=== PATIENT | male | born 1980 | race Caucasian/White ===

== ENCOUNTER 2016-08-08 21:13 | Emergency (ER) | payer MEDICARE, MEDICAID ==
[2016-08-08] MEDS ORDERED: Ondansetron INJ* 2 MG/ML VIAL ONE (21:43)
[2016-08-08] MEDS ORDERED: Ondansetron INJ* 2 MG/ML VIAL IV ONE (21:47)
[2016-08-08] MEDS ORDERED: NS 0.9% 1000 ML* 1,000 ML IV ONE (22:15)
[2016-08-08] MEDS ORDERED: HYDROmorphone INJ* 1 MG/ML CARPUJECT SYRINGE IV ONE ×2 (22:15→22:50)
[2016-08-08] MEDS ORDERED: Pantoprazole IV* 40 MG IV ONE (22:20)
[2016-08-08 22:43] LABS: Hematocrit 53 % (42-52); Hemoglobin 18.3 g/dl (14.0-18.0); Mean Corpuscular HGB Conc 34 g/dl (31-36); Mean Corpuscular Hemoglobin 29 pg (27-31); Mean Corpuscular Volume 83 fL (80-94); Mean Platelet Volume 10 um3 (7.4-10.4); Red Blood Count 6.42 10^6/ul (4.0-5.4); Red Cell Distribution Width 14 % (10.5-15); White Blood Count 25.7 10^3/ul (3.5-10.8)
[2016-08-08 22:45] LABS: Add Diff/Slide Review? Slide Review Added; Comments Flag Yes
[2016-08-08 22:47] LABS: Albumin 4.8 g/dL (3.2-5.2); BUN/Creatinine Ratio 11.6 (8-20); C Reactive Protein 2.39 mg/L (< 5.00); Calcium 10.5 mg/dL (8.6-10.3); EGFR African American 168.8 (>60); EGFR Non-African American 131.3 (>60); Globulin 2.8 g/dL (2-4); Magnesium 2.1 mg/dL (1.9-2.7); Potassium 3.7 mmol/L (3.5-5.0); Total Bilirubin 0.6 mg/dL (0.2-1.0); Total Protein 7.6 g/dL (6.4-8.9)
[2016-08-08] MEDS ORDERED: LORazepam INJ* 2 MG/ML 1 ML VIAL IV PUSH ONE (22:55)
[2016-08-09] MEDS ORDERED: Iohexol 300* (CONTRAST) 10 ML SDV IV ONE (00:39)
[2016-08-09] MEDS ORDERED: NS 0.9% 1000 ML* 1,000 ML IV ONE (02:27)
[2016-08-09] MEDS ORDERED: Lidocaine 2% VISCOUS* 15 ML UDC PO ONE (02:35)
[2016-08-09] MEDS ORDERED: Al Hydrox/Mg Hydrox/Simet LIQ* 30 ML UDC PO ONE (02:35)
[2016-08-09] MEDS ORDERED: Al Hydrox/Mg Hydrox/Simet LIQ* 30 ML UDC ONE (02:36)
[2016-08-09] MEDS ORDERED: Lidocaine 2% VISCOUS* 15 ML UDC ONE (02:36)
[2016-08-09] MEDS ORDERED: HYDROmorphone INJ* 1 MG/ML CARPUJECT SYRINGE IV ONE ×2 (03:07)
[2016-08-09 04:02] VITALS: BP 136/73
[2016-08-09 04:26] LABS: Urine Bilirubin Negative (Negative); Urine Glucose Negative (Negative); Urine Nitrite Negative (Negative)
[2016-08-09 04:34] LABS: Hematocrit 46 % (42-52); Hemoglobin 15.3 g/dl (14.0-18.0); Mean Corpuscular HGB Conc 34 g/dl (31-36); Mean Corpuscular Hemoglobin 28 pg (27-31); Mean Corpuscular Volume 84 fL (80-94); Mean Platelet Volume 10 um3 (7.4-10.4); Red Blood Count 5.45 10^6/ul (4.0-5.4); Red Cell Distribution Width 14 % (10.5-15); White Blood Count 16.6 10^3/ul (3.5-10.8)
[2016-08-09] MEDS ORDERED: HYDROcodone/ACETAMIN 5-325 MG* 1 TAB PO ONE (04:52)
--- NOTE | 2016-08-09 04:57 | ED ---
IDavid,Олег, scribed for Lorene Huitron MD on 08/08/16 at 2221 . Abdominal Pain/Male - HPI Summary HPI Summary: This 36 y/o male presents to ED for gradual onset of LUQ pain since last night. Abd pain is located LUQ and worse since today. Pt reports positive n/v x12 and diarrhea x10 since the time of onset. PMHx is significant for gastroenteritis for which pt was admitted at [facility] in April 2016. Endoscope was done and indicated gastritis with proximal duodenitis. Negative hx of HTN, DM, or kidney stone. Pt does not have PCP. He lives alone. He is blind. - History of Current Complaint Chief Complaint: EDAbdPain Stated Complaint: ABD PAIN Hx Obtained From: Patient, Medical Records Onset/Duration: Gradual Onset, Still Present Timing: Constant Pain Intensity: 10 Pain Scale Used: 0-10 Numeric Location: Discrete At: LUQ Radiates: No Character: Sharp - Allergies/Home Medications Allergies/Adverse Reactions: Allergies Allergy/AdvReac Type Severity Reaction Status Date / Time No Known Allergies Allergy Verified 05/03/13 16:32 PMH/Surg Hx/FS Hx/Imm Hx Endocrine/Hematology History: Denies: Hx Diabetes, Hx Thyroid Disease Cardiovascular History: Denies: Hx Hypertension, Hx Pacemaker/ICD Respiratory History: Denies: Hx Asthma, Hx Chronic Obstructive Pulmonary Disease (COPD) GI History: Reports: Other GI Disorders - Gastroenterites Denies: Hx Ulcer Musculoskeletal History: Reports: Hx Orthopedic Injury - left foot injury Sensory History: Reports: Hx Legally Blind Denies: Hx Hearing Aid Opthamlomology History: Reports: Hx Legally Blind Psychiatric History: Reports: Hx Attention Deficit Hyperactivity Disorder Denies: Hx Panic Disorder - Surgical History Surgery Procedure, Year, and Place: EAR TUBES. EYE MUSCLE SURGERY Infectious Disease History: No Infectious Disease History: Denies: Hx Hepatitis, Hx Human Immunodeficiency Virus (HIV), Traveled Outside the [place] in Last 30 Days - Family History Known Family History: Positive: Other - Lung CA to father - Social History Lives: Alone Alcohol Use: None Hx Substance Use: No Substance Use Type: Reports: None Hx Tobacco Use: No Smoking Status (MU): Never Smoked Tobacco Review of Systems Negative: Fever Positive: Abdominal Pain, Vomiting - x12, Diarrhea - x10, Nausea Negative: Anxious, Depressed All Other Systems Reviewed And Are Negative: Yes Physical Exam Triage Information Reviewed: Yes Vital Signs On Initial Exam: Initial Vitals Temp Pulse Resp BP Pulse Ox 98.0 F 120 16 145/87 99 08/08/16 21:15 08/08/16 21:15 08/08/16 21:15 08/08/16 21:15 08/08/16 21:15 Vital Signs Reviewed: Yes Appearance: Positive: Pain Distress - moderate Skin: Positive: Warm, Dry Head/Face: Positive: Normal Head/Face Inspection Eyes: Positive: KANDIS ENT: Positive: Other - oral mucous membrane moderately dry Neck: Positive: Supple, Nontender Respiratory/Lung Sounds: Positive: Breath Sounds Present Abdomen Description: Positive: Other: - tender most notable to LUQ. Musculoskeletal: Positive: Strength/ROM Intact Neurological: Positive: Sensory/Motor Intact, Alert, Oriented to Person Place, Time Psychiatric: Positive: Affect/Mood Appropriate AVPU Assessment: Alert - Amadou Coma Scale Coma Scale Total: 13 Diagnostics - Vital Signs Vital Signs Temp Pulse Resp BP Pulse Ox 08/08/16 21:15 98.0 F 120 16 145/87 99 - Laboratory Lab Results: Lab Results 08/08/16 08/08/16 08/08/16 Range/Units 21:30 21:30 21:30 WBC 25.7 H (3.5-10.8) 10^3/ul RBC 6.42 H (4.0-5.4) 10^6/ul Hgb 18.3 H (14.0-18.0) g/dl Hct 53 H (42-52) % MCV 83 (80-94) fL MCH 29 (27-31) pg MCHC 34 (31-36) g/dl RDW 14 (10.5-15) % Plt Count 267 (150-450) 10^3/ul MPV 10 (7.4-10.4) um3 Neut % (Auto) 85.1 H (38-83) % Lymph % (Auto) 8.0 L (25-47) % [place] % (Auto) 5.0 (1-9) % Eos % (Auto) 1.1 (0-6) % Baso % (Auto) 0.8 (0-2) % Absolute Neuts (auto) 21.9 H (1.5-7.7) 10^3/ul Absolute Lymphs (auto) 2.1 (1.0-4.8) 10^3/ul Absolute Monos (auto) 1.3 H (0-0.8) 10^3/ul Absolute Eos (auto) 0.3 (0-0.6) 10^3/ul Absolute Basos (auto) 0.2 (0-0.2) 10^3/ul Absolute Nucleated RBC 0.04 10^3/ul Nucleated RBC % 0.1 Sodium 137 (133-145) mmol/L Potassium 3.7 (3.5-5.0) mmol/L Chloride 104 (101-111) mmol/L Carbon Dioxide 24 (22-32) mmol/L Anion Gap 9 (2-11) mmol/L BUN 8 (6-24) mg/dL Creatinine 0.69 (0.67-1.17) mg/dL Est GFR ( Amer) 168.8 (>60) Est GFR (Non-Af Amer) 131.3 (>60) BUN/Creatinine Ratio 11.6 (8-20) Glucose 132 H (70-100) mg/dL Lactic Acid 1.7 (0.5-2.0) mmol/L Calcium 10.5 H (8.6-10.3) mg/dL Magnesium 2.1 (1.9-2.7) mg/dL Total Bilirubin 0.60 (0.2-1.0) mg/dL AST 15 (13-39) U/L ALT 28 (7-52) U/L Alkaline Phosphatase 42 (34-104) U/L C-Reactive Protein 2.39 (< 5.00) mg/L Total Protein 7.6 (6.4-8.9) g/dL Albumin 4.8 (3.2-5.2) g/dL Globulin 2.8 (2-4) g/dL Albumin/Globulin Ratio 1.7 (1-3) Lipase 28 (11.0-82.0) U/L Urine Color Urine Appearance Urine pH (5-9) Ur Specific [place] (1.010-1.030) Urine Protein (Negative) Urine Ketones (Negative) Urine Blood (Negative) Urine Nitrate (Negative) Urine Bilirubin (Negative) Urine Urobilinogen (Negative) Ur Leukocyte Esterase (Negative) Urine Glucose (Negative) 02/07/17 02/07/17 Range/Units 04:04 04:15 WBC 16.6 H (3.5-10.8) 10^3/ul RBC 5.45 H (4.0-5.4) 10^6/ul Hgb 15.3 (14.0-18.0) g/dl Hct 46 (42-52) % MCV 84 (80-94) fL MCH 28 (27-31) pg MCHC 34 (31-36) g/dl RDW 14 (10.5-15) % Plt Count 179 (150-450) 10^3/ul MPV 10 (7.4-10.4) um3 Neut % (Auto) 84.2 H (38-83) % Lymph % (Auto) 9.6 L (25-47) % [place] % (Auto) 4.4 (1-9) % Eos % (Auto) 1.4 (0-6) % Baso % (Auto) 0.4 (0-2) % Absolute Neuts (auto) 14.0 H (1.5-7.7) 10^3/ul Absolute Lymphs (auto) 1.6 (1.0-4.8) 10^3/ul Absolute Monos (auto) 0.7 (0-0.8) 10^3/ul Absolute Eos (auto) 0.2 (0-0.6) 10^3/ul Absolute Basos (auto) 0.1 (0-0.2) 10^3/ul Absolute Nucleated RBC 0.05 10^3/ul Nucleated RBC % 0.3 Sodium (133-145) mmol/L Potassium (3.5-5.0) mmol/L Chloride (101-111) mmol/L Carbon Dioxide (22-32) mmol/L Anion Gap (2-11) mmol/L BUN (6-24) mg/dL Creatinine (0.67-1.17) mg/dL Est GFR ( Amer) (>60) Est GFR (Non-Af Amer) (>60) BUN/Creatinine Ratio (8-20) Glucose (70-100) mg/dL Lactic Acid (0.5-2.0) mmol/L Calcium (8.6-10.3) mg/dL Magnesium (1.9-2.7) mg/dL Total Bilirubin (0.2-1.0) mg/dL AST (13-39) U/L ALT (7-52) U/L Alkaline Phosphatase (34-104) U/L C-Reactive Protein (< 5.00) mg/L Total Protein (6.4-8.9) g/dL Albumin (3.2-5.2) g/dL Globulin (2-4) g/dL Albumin/Globulin Ratio (1-3) Lipase (11.0-82.0) U/L Urine Color Yellow Urine Appearance Clear Urine pH 5.0 (5-9) Ur Specific [place] > 1.060 H (1.010-1.030) Urine Protein Negative (Negative) Urine Ketones Negative (Negative) Urine Blood Negative (Negative) Urine Nitrate Negative (Negative) Urine Bilirubin Negative (Negative) Urine Urobilinogen Negative (Negative) Ur Leukocyte Esterase Negative (Negative) Urine Glucose Negative (Negative) Result Diagrams: 08/09/16 04:04 08/08/16 21:30 Lab Statement: Any lab studies that have been ordered have been reviewed, and results considered in the medical decision making process. - CT Ab/P CT Interpretation: Positive (See Comments) - Long segment of mildly thick walled small bowel noted throughout the abd may represent mild enteritis. There is no inflammatory stranding seen in the mesentery. Alternatively the bowel does have a slightly stratified appearance which can be due to the present of incresaed submucosal fat, which is new from the prior exam and could be the result of body habitus or steroid use. No other inflammatory process identified in the abd or pelvis. No abd mass, adenopathy or collection seen. CT Interpretation Completed By: Radiologist Re-Evaluation - Re-Evaluation First Eval Re-Evaluation Time: 22:53 Change: Unchanged Comment: Pain still persist. Second Eval Re-Evaluation Time: 23:57 Change: Improved Comment: Pt states that his pain has improved but still present waxing and waning. Pt is currently requesting more pain medications. Third Eval Re-Evaluation Time: 03:00 Change: Unchanged Comment: Pt expresses desire to leave, stating that he will pull out the IV to walk out. is notified. One more dose of Dilaudid is ordered, and MD is in room to communicate with pt and his father. Pt verbalizes understanding and agrees to stay at this point. Abdominal Pain Fem Course/Dx - Course Assessment/Plan: This 36 y/o male presents to ED with chief complaint of gradual worsening of abd pain since last night, currently rated as 10/10. PMHx is significant for gastritis for which pt was admitted at [facility] and endoscoped in April 2016. Blood work indicates elevated WBC of 25.7, hgb of 18.3, and hct of 53. CRP and creatinine are wnl. CT Ab/P indicates possible enteritis without inflammatory stranding in mesentery but new stratified appearance bowel from the last examination. Pt had a repeat wbc which came down to 16 after iv fluids , pt given short course of pain meds as he is adament that his pain is not being treated, ppi and zofran. abd is benign - Diagnoses Provider Diagnoses: Leukocytosis, Gastroenteritis Discharge - Discharge Plan Condition: Stable Disposition: HOME Prescriptions: HYDROcodone/ACETAMIN 5-325 MG* [Tram 5-325 TAB*] 1 tab PO Q8H PRN #7 tab MDD 3 PRN Reason: Pain Omeprazole CAP* [Prilosec CAP* 20 MG] 20 mg PO DAILY #14 cap.dr Ondansetron ODT TAB* [Zofran Odt TAB*] 4 mg PO Q8H PRN #14 tab.odt PRN Reason: Nausea The documentation as recorded by the David jiménez Soohyun accurately reflects the service I personally performed and the decisions made by me, Lorene Huitron MD.
--- NOTE | 2016-08-09 08:08 | RAD ---
CLINICAL HISTORY: Abdominal pain, emesis and leukocytosis. COMPARISON: Most recent comparison CT dated April 09, 2016 TECHNIQUE: Contrast enhanced CT examination of the abdomen and pelvis from the lung bases through the initial tuberosities. The patient received 121 mL Omnipaque 300 intravenously prior to imaging.The patient received oral contrast as well prior to imaging. FINDINGS: This CT examination is limited quality due to the patient's inability to hold his breath during image acquisition and there are by creating motion artifact most severely affecting the lung bases but seen around the abdomen. VISUALIZED LUNG BASES: Evaluation of the lung bases is unreliable due to the patient's inability to hold his breath during image acquisition. ABDOMEN AND PELVIS: Again seen in the right lobe of the liver is a 1.8 cm fluid density cyst unchanged from the previous CT examination. In the dependent right lobe of the liver (image 62) there is a stable 5 mm hypodensity that cannot characterize further. The homogenously attenuating spleen is enlarged measuring just under 14 cm in greatest axial dimension. The pancreas and adrenal glands are grossly normal in appearance. The gallbladder is decompressed and subject to respiratory motion artifact and thereby not reliably evaluated on this CT examination. The kidneys are normal in appearance without focal mass, calcification or signs of hydronephrosis. The oral contrast has progressed as far as the base of the cecum. The proximal small bowel is dilated measuring up to 3.4 cm in diameter. The small bowel exhibits varying degrees of wall thickening with a maximum wall thickness of 9 mm measured at the jejunum (image 72). The normal contrast-filled 6 mm appendix is identified in the right lower quadrant. The distal colon is less reliably evaluated as oral contrast has not progressed as far but there appears to be thickening of the rectum up to 6 mm in thickness. Scattered mesenteric lymph nodes are top normal dimension measuring just under 9 mm in short access diameter (image 39 of 105). Trace ascites is seen along the descending colon (image 111). There is no retroperitoneal lymphadenopathy. The pelvic viscera is normal in appearance. The abdominal aorta and iliac arteries are normal in course and diameter. There are no sinister bone lesions. IMPRESSION: 1. The constellation of findings described above can be seen with inflammatory bowel disease versus an infectious etiology. 2. Splenomegaly similar to the most recent April 09, 2016 CT examination.
== END 2016-08-09 05:12 | disposition home or self-care (01) ==
LOC: ED 21:13
DX: K52.9 Noninfective gastroenteritis and colitis, unspecified (principal); D72.829 Elevated white blood cell count, unspecified; H54.8 Legal blindness, as defined in USA; F90.9 Attention-deficit hyperactivity disorder, unspecified type
CPT/HCPCS: 36415; 74177; 80053; 81003; 83605; 83690; 83735; 85025; 86140; 96360; 96374; 96375; 96376; 99284; A9270-GY; J1170; J2060; J2405; Q9967

== ENCOUNTER 2016-09-28 17:18 | Emergency (ER) | payer MEDICARE, MEDICAID ==
--- NOTE | 2016-09-28 18:15 | ED ---
Substance Abuse/Use - HPI Summary HPI Summary: 36M presents with requesting labs for detox. [facility] He does not use any heronin but uses morphine pills. His last use was 3 days ago. He states that he needs a cbc, cmp and EKG and they should accept him. He admits to headache, nausea, and feeling ill. - History Of Current Complaint Chief Complaint: EDDetoxRequest Stated Complaint: DETOX REQUEST Time Seen by Provider: 09/28/16 17:33 - Allergies/Home Medications Allergies/Adverse Reactions: Allergies Allergy/AdvReac Type Severity Reaction Status Date / Time No Known Allergies Allergy Verified 09/28/16 17:20 PMH/Surg Hx/FS Hx/Imm Hx Endocrine/Hematology History: Denies: Hx Diabetes, Hx Thyroid Disease Cardiovascular History: Denies: Hx Hypertension, Hx Pacemaker/ICD Respiratory History: Denies: Hx Asthma, Hx Chronic Obstructive Pulmonary Disease (COPD) GI History: Reports: Other GI Disorders - Gastroenterites Denies: Hx Ulcer Musculoskeletal History: Reports: Hx Orthopedic Injury - left foot injury Sensory History: Reports: Hx Legally Blind Denies: Hx Hearing Aid Opthamlomology History: Reports: Hx Legally Blind Psychiatric History: Reports: Hx Attention Deficit Hyperactivity Disorder Denies: Hx Panic Disorder - Surgical History Surgery Procedure, Year, and Place: EAR TUBES. EYE MUSCLE SURGERY Infectious Disease History: No Infectious Disease History: Denies: Hx Hepatitis, Hx Human Immunodeficiency Virus (HIV), Traveled Outside the [place] in Last 30 Days - Family History Known Family History: Positive: Other - Lung CA to father - Social History Alcohol Use: None Hx Substance Use: No Substance Use Type: Reports: Other Substance Use Comment - Amount & Last Used: buys morphine off the street Hx Tobacco Use: No Smoking Status (MU): Never Smoked Tobacco Review of Systems Negative: Fever Negative: Chest Pain Negative: Shortness Of Breath Positive: Nausea Positive: Headache All Other Systems Reviewed And Are Negative: Yes Physical Exam Triage Information Reviewed: Yes Vital Signs On Initial Exam: Initial Vitals Temp Pulse Resp BP Pulse Ox 97.9 F 108 20 169/80 99 09/28/16 17:20 09/28/16 17:20 09/28/16 17:20 09/28/16 17:20 09/28/16 17:20 Vital Signs Reviewed: Yes Appearance: Positive: Well-Appearing Skin: Positive: Warm, Dry Head/Face: Positive: Normal Head/Face Inspection Eyes: Positive: Normal, Conjunctiva Clear Respiratory/Lung Sounds: Positive: Clear to Auscultation, Breath Sounds Present Cardiovascular: Positive: Normal, RRR Diagnostics - Vital Signs Vital Signs Temp Pulse Resp BP Pulse Ox 09/28/16 17:20 97.9 F 108 20 169/80 99 - Laboratory Result Diagrams: 09/28/16 18:15 09/28/16 18:15 Lab Statement: Any lab studies that have been ordered have been reviewed, and results considered in the medical decision making process. - EKG No standard instances Cardiac Rate: NL EKG Rhythm: Sinus Rhythm Course/Dx - Course Course Of Treatment: 36F presents with lab and EKG request for detox. is going to go [facility] after gets labs and ekg. on exam patient is nauseous and has headache. last use 3 days ago. uses morphine gets off streets. sent labs and ekg to facility and patient is going directly there. - Diagnoses Differential Diagnosis/HQI/PQRI: Positive: Drug Abuse, Drug Withdrawal Provider Diagnoses: Opioid withdrawal Discharge - Discharge Plan Condition: Stable Disposition: HOME Patient Education Materials: Opioid Withdrawal (ED) Referrals: Igor Mari MD [Primary Care Provider] - Additional Instructions: Follow up with detox center
[2016-09-28 18:41] LABS: Hematocrit 46 % (42-52); Hemoglobin 15.6 g/dl (14.0-18.0); Mean Corpuscular HGB Conc 34 g/dl (31-36); Mean Corpuscular Hemoglobin 29 pg (27-31); Mean Corpuscular Volume 84 fL (80-94); Mean Platelet Volume 10 um3 (7.4-10.4); Red Cell Distribution Width 14 % (10.5-15); White Blood Count 11.5 10^3/ul (3.5-10.8)
[2016-09-28 18:58] LABS: Albumin 4.4 g/dL (3.2-5.2); BUN/Creatinine Ratio 14.3 (8-20); Calcium 9.2 mg/dL (8.6-10.3); EGFR African American 187.5 (>60); EGFR Non-African American 145.8 (>60); Globulin 2.5 g/dL (2-4); Potassium 3.3 mmol/L (3.5-5.0); Total Bilirubin 0.7 mg/dL (0.2-1.0); Total Protein 6.9 g/dL (6.4-8.9)
[2016-09-28] MEDS ORDERED: Ondansetron ODT TAB* 4 MG PO ONE (19:06)
[2016-09-28 19:15] VITALS: BP 134/91
== END 2016-09-28 19:13 | disposition home or self-care (01) ==
LOC: ED 17:18
DX: F11.23 Opioid dependence with withdrawal (principal); R51 Headache; T40.2X5A Adverse effect of other opioids, initial encounter; Y92.89 Other specified places as the place of occurrence of the external cause
CPT/HCPCS: 36415; 80053; 85025; 93005; 99281